=== PATIENT | male | born 1985 | race Two or more races ===

== ENCOUNTER 2020-03-24 16:45 | Emergency (ER) | payer BC | END 2020-03-24 16:59 | disposition left against medical advice (07) | LOC: EMS 16:45 | DX: Z53.21 Procedure and treatment not carried out due to patient leaving prior to being seen by health care provider (principal) ==

== ENCOUNTER 2021-05-02 13:14 | Inpatient (IN) | payer BC, MEDICAID, OTHER ==
[~2021-05-02] VITALS: Ht 162.6 cm; Wt 69.4 kg
[2021-05-02] MEDS ORDERED: LORazepam 2 MG/ML VIAL IM ONE (17:45)
[2021-05-02] MEDS ORDERED: DiphenhydrAMINE HCL 25 MG/10 ML SOLUTION UDCUP PO ONE (17:45)
[2021-05-02] MEDS ORDERED: HALOPERIDOL LACTATE 5 MG/ML VIAL IM ONE (17:45)
[2021-05-02] MEDS ORDERED: DiphenhydrAMINE HCL 50 MG/ML VIAL IM ONE (17:45)
[2021-05-02 18:49] LABS: ANION GAP 9 mmol/L (8-16); CALCIUM, TOTAL 8.9 mg/dL (8.8-10.5); CARBON DIOXIDE 25 mmol/L (22-29); CHLORIDE 106 mmol/L (98-107); CREATININE 0.83 mg/dL (0.60-1.30); GLOMERULAR FILTR. RATE CALC > 60 mL/min (>60); GLUCOSE,RANDOM 80 mg/dL (70-110); POTASSIUM 3.4 mmol/L (3.5-5.1); SODIUM SERUM 140 mmol/L (136-145); UREA NITROGEN, BLOOD 20 mg/dL (7-18)
[2021-05-02 18:55] LABS: ALANINE AMINOTRANSFERASE 22 U/L (12-78); ALBUMIN 3.9 g/dL (3.4-5.0); ALKALINE PHOSPHATASE 60 U/L (46-116); ASPARTATE AMINOTRANSFERASE 22 U/L (15-37); BILIRUBIN,TOTAL 0.3 mg/dL (0.1-1.0); TOTAL PROTEIN, SERUM 7.5 g/dL (6.4-8.2)
[2021-05-02 19:20] LABS: BASOPHILS % (AUTO) 0.6 % (0.0-2.0); EOSINOPHILS % (AUTO) 0.6 % (1.0-6.0); HEMATOCRIT 41.1 % (41-53); HEMOGLOBIN 13.9 g/dL (13.5-17.5); LYMPHOCYTES # (AUTO) 2.1 K/uL (1.0-4.8); LYMPHOCYTES % (AUTO) 24.2 % (22.0-44.0); MEAN CORPUSCULAR HEMOGLOBIN 29.3 pg (26.0-34.0); MEAN CORPUSCULAR HGB CONC 33.9 G/dL (31.0-37.0); MEAN CORPUSCULAR VOLUME 87 fL (80-100); MONOCYTES # (AUTO) 0.6 K/uL (0.1-1.0); MONOCYTES % (AUTO) 6.9 % (2.0-9.0); NEUTROPHILS % (AUTO) 67.7 % (40.0-70.0); PLATELET COUNT (AUTO) 298 K/uL (150-450); RED BLOOD CELL COUNT(AUTO) 4.75 MIL/uL (4.50-5.90)
[2021-05-02] MEDS ORDERED: POTASSIUM CHLORIDE 10% 40 MEQ/30 ML LIQUID UDCUP PO ONE (22:15)
[2021-05-02 22:28] LABS: COVID AG,FIA SOURCE NASOPHARYNGEAL
[2021-05-03] MEDS ORDERED: LORazepam 2 MG TABLET PO PRN (02:00)
[2021-05-03] MEDS ORDERED: ZOLPIDEM TARTRATE 10 MG TABLET PO PRN (02:00)
[2021-05-03] MEDS ORDERED: ALBUTEROL SULFATE HFA 90 MCG/PUFF 8 GM INHALER IH PRN (12:30)
[2021-05-03] MEDS ORDERED: GuaiFENesin/D-METHORPHAN [SUGAR-FREE] 200-20MG/10 ML SYRUP UDCUP PO PRN (12:30)
[2021-05-03] MEDS ORDERED: MAGNESIUM HYDROXIDE SUSPENSION 30 ML UDCUP PO PRN (12:30)
[2021-05-03] MEDS ORDERED: CloNIDine HCL 0.1 MG TABLET PO PRN (12:30)
[2021-05-03] MEDS ORDERED: PETROLATUM,WHITE 28 GM JELLY TP PRN (12:30)
[2021-05-03] MEDS ORDERED: IBUPROFEN 400 MG TABLET PO PRN (12:30)
[2021-05-03] MEDS ORDERED: ONDANSETRON HCL 4 MG TABLET PO PRN (12:30)
[2021-05-03] MEDS ORDERED: ACETAMINOPHEN 325 MG TABLET PO PRN (12:30)
[2021-05-03] MEDS ORDERED: MAG HYDROX/AL HYDROX/SIMETH ES 30 ML SUSPENSION UDCUP PO PRN (12:30)
[2021-05-03] MEDS ORDERED: LOPERAMIDE HCL 2 MG CAPSULE PO PRN (12:30)
[2021-05-03] MEDS ORDERED: DOCUSATE SODIUM 100 MG CAPSULE PO PRN (12:30)
[2021-05-03] MEDS ORDERED: NICOTINE 14 MG/24 HOUR PATCH TD PRN (12:30)
[2021-05-04] MEDS: HALOPERIDOL 5 MG TABLET PO PRN (08:19)
[2021-05-04] MEDS: OLANZapine 10 MG TABLET PO SCH ×2 (11:15→21:00)
[2021-05-04] MEDS ORDERED: LORazepam 2 MG TABLET PO PRN (14:00)
[2021-05-05 00:14] VITALS: BP 120/69
[2021-05-05] MEDS: LORazepam 1 MG TABLET PO PRN ×3 (08:45→12:08)
[2021-05-05] MEDS: HALOPERIDOL 5 MG TABLET PO PRN ×2 (08:45→12:08)
[2021-05-05] MEDS: OLANZapine 10 MG TABLET PO SCH ×3 (08:45→20:54)
[2021-05-06] MEDS: OLANZapine 10 MG TABLET PO SCH ×3 (08:04→20:42)
[2021-05-06] MEDS: LORazepam 1 MG TABLET PO PRN (23:33)
[2021-05-07 08:30] VITALS: BP 121/79
[2021-05-07] MEDS: OLANZapine 10 MG TABLET PO SCH ×2 (08:32→21:00)
[2021-05-08] MEDS: OLANZapine 10 MG TABLET PO SCH ×2 (09:00→20:30)
[2021-05-09] MEDS: OLANZapine 10 MG TABLET PO SCH ×2 (08:48→21:00)
[2021-05-09 16:22] VITALS: BP 109/74
[2021-05-10 08:24] VITALS: BP 130/84
[2021-05-10] MEDS: OLANZapine 10 MG TABLET PO SCH ×2 (08:31→08:38)
[2021-05-10] MEDS ORDERED: OLAN10 PO (09:16)
== END 2021-05-10 09:45 | disposition home or self-care (01) | DRG 750 ==
LOC: EMS 13:22 → B3A 05-03 13:35
PROVIDERS: ADMIT Psychiatry & Neurology Child & Adolescent Psychiatry; ATTEND Psychiatry & Neurology Child & Adolescent Psychiatry
DX: F20.0 Paranoid schizophrenia (principal); F31.9 Bipolar disorder, unspecified; Z20.822 Contact with and (suspected) exposure to COVID-19; Z91.14 Patient's other noncompliance with medication regimen
CPT/HCPCS: 80053; 85025; 99285; G0480; J1200; J1630; J2060

== ENCOUNTER 2023-05-25 11:46 | Inpatient (IN) | payer MEDICAID ==
[~2023-05-25] VITALS: Ht 162.6 cm; Wt 89.8 kg
[2023-05-25 12:56] LABS: GLUCOMETER DEV NAME(LOC) POC.BV; POC SARS-COV2 AG, FIA NEGATIVE (NEGATIVE)
[2023-05-25 14:00] VITALS: BP 111/70; PULSE 90; RESP 18; TEMP 97.5; O2SAT 100
[2023-05-25] MEDS: INFLUENZA VIRUS VACCINE QVS 2023-24 (6MO+)/PF 60 MCG/0.5 ML SYRINGE IM. ONE (14:45)
[2023-05-25 16:42] VITALS: BP 129/74; PULSE 86; RESP 18; O2SAT 98
[2023-05-25] MEDS: HALOPERIDOL 5 MG TABLET PO PRN (16:44)
[2023-05-25] MEDS: LORazepam 2 MG TABLET PO PRN (16:44)
[2023-05-25 20:00] VITALS: BP 113/69; PULSE 71; RESP 18; TEMP 97.4; O2SAT 98
[2023-05-26 08:24] VITALS: BP 121/82; PULSE 87; RESP 18; TEMP 98; O2SAT 98
[2023-05-26 10:27] LABS: BASOPHILS % (AUTO) 0.8 % (0.0-2.0); EOSINOPHILS % (AUTO) 1.7 % (1.0-6.0); HEMATOCRIT 43.9 % (41-53); HEMOGLOBIN 14.5 g/dL (13.5-17.5); LYMPHOCYTES # (AUTO) 1.9 K/uL (1.0-4.8); LYMPHOCYTES % (AUTO) 21.2 % (22.0-44.0); MEAN CORPUSCULAR HEMOGLOBIN 29.2 pg (26.0-34.0); MEAN CORPUSCULAR HGB CONC 33.1 G/dL (31.0-37.0); MEAN CORPUSCULAR VOLUME 88 fL (80-100); MONOCYTES # (AUTO) 0.6 K/uL (0.1-1.0); MONOCYTES % (AUTO) 7.2 % (2.0-9.0); NEUTROPHILS # (AUTO) 6.1 K/uL (1.8-7.7); NEUTROPHILS % (AUTO) 69.1 % (40.0-70.0); PLATELET COUNT (AUTO) 396 K/uL (150-450); RED BLOOD CELL COUNT(AUTO) 4.98 MIL/uL (4.50-5.90); WHITE BLOOD COUNT (AUTO) 8.9 K/uL (4.5-11.0)
[2023-05-26 10:36] LABS: HEMOGLOBIN A1C 5.7 % (3.8-5.6)
[2023-05-26 10:39] LABS: APPEARANCE,URINE TURBID (CLEAR); BILIRUBIN,URINE NEGATIVE (NEGATIVE); COLOR,URINE YELLOW (YELLOW); GLUCOSE, URINE (UA) NEGATIVE (NEGATIVE); KETONES,URINE NEGATIVE (NEGATIVE); LEUKOCYTE ESTERASE ,URINE NEGATIVE (NEGATIVE); NITRATE,URINE NEGATIVE (NEGATIVE); OCCULT BLOOD,URINE NEGATIVE (NEGATIVE); PROTEIN,URINE NEGATIVE (NEGATIVE); SPECIFIC GRAVITIY, URINE 1.018 (1.003-1.030); UROBILINOGEN,URINE <=1.0 mg/dL (<=1.0)
[2023-05-26 10:45] LABS: ALCOHOL, URINE DRUG SCREEN NEGATIVE (NEGATIVE); AMPHET/METH SCREEN,URINE NEGATIVE (NEGATIVE); BARBITURATE SCREEN, URINE NEGATIVE (NEGATIVE); BENZODIAZEPINES SCREEN,URINE NEGATIVE (NEGATIVE); CANNABINOID SCREEN,URINE NEGATIVE (NEGATIVE); COCAINE SCREEN,URINE NEGATIVE (NEGATIVE); METHADONE SCREEN, URINE NEGATIVE (NEGATIVE); OPIATE SCREEN,URINE NEGATIVE (NEGATIVE); PHENCYCLIDINE SCREEN,URINE NEGATIVE (NEGATIVE)
[2023-05-26 10:50] LABS: ALANINE AMINOTRANSFERASE 36 U/L (12-78); ALBUMIN 3.6 g/dL (3.4-5.0); ALKALINE PHOSPHATASE 84 U/L (46-116); ANION GAP 8 mmol/L (8-16); ASPARTATE AMINOTRANSFERASE 17 U/L (15-37); BILIRUBIN,TOTAL 0.2 mg/dL (0.1-1.0); CALCIUM, TOTAL 9.5 mg/dL (8.8-10.5); CARBON DIOXIDE 29 mmol/L (22-29); CHLORIDE 100 mmol/L (98-107); CHOL/HDL RATIO 5.5 (4.2-7.3); CHOLESTEROL 246 mg/dL (131-200); CREATININE 0.71 mg/dL (0.60-1.30); FREE T4 (FREE THYROXINE) 1.07 ng/dL (0.76-1.46); GLOMERULAR FILTR. RATE CALC > 60 mL/min (>60); GLUCOSE,RANDOM 76 mg/dL (70-110); HDL CHOLESTEROL 45 mg/dL (40-60); LDL CHOL (CALC.) 126 mg/dL (0-130); POTASSIUM 4.1 mmol/L (3.5-5.1); SODIUM SERUM 137 mmol/L (136-145); TOTAL PROTEIN, SERUM 7.2 g/dL (6.4-8.2); TRIGLYCERIDES 374 mg/dL (15-150); UREA NITROGEN, BLOOD 17 mg/dL (7-18)
[2023-05-26] MEDS ORDERED: DOCUSATE SODIUM 100 MG CAPSULE PO PRN (13:30)
[2023-05-26] MEDS ORDERED: BENZOCAINE/MENTHOL LOZENGE PO PRN (13:30)
[2023-05-26] MEDS ORDERED: ALBUTEROL SULFATE HFA 90 MCG/PUFF 8 GM INHALER IH PRN (13:30)
[2023-05-26] MEDS ORDERED: ONDANSETRON HCL 4 MG TABLET PO PRN (13:30)
[2023-05-26] MEDS ORDERED: IBUPROFEN 600 MG TABLET PO PRN (13:30)
[2023-05-26] MEDS ORDERED: MAGNESIUM HYDROXIDE SUSPENSION 30 ML UDCUP PO PRN (13:30)
[2023-05-26] MEDS ORDERED: CloNIDine HCL 0.1 MG TABLET PO PRN (13:30)
[2023-05-26] MEDS ORDERED: OMEPRAZOLE 20 MG CAPSULE PO PRN (13:30)
[2023-05-26] MEDS ORDERED: BACITRACIN 28 GM OINTMENT TP PRN (13:30)
[2023-05-26] MEDS ORDERED: LOPERAMIDE HCL 2 MG CAPSULE PO PRN (13:30)
[2023-05-26] MEDS: RisperiDONE 3 MG TABLET PO SCH (16:22)
[2023-05-26] MEDS: DIVALPROEX SODIUM 500 MG DR TABLET PO SCH (16:22)
[2023-05-26] MEDS: BENZTROPINE MESYLATE 2 MG TABLET PO SCH (20:27)
[2023-05-26 21:03] VITALS: BP 124/78; PULSE 91; RESP 18; TEMP 97.7; O2SAT 98
[2023-05-27 06:32] VITALS: BP 125/75; PULSE 92; RESP 18; TEMP 97.5; O2SAT 98
[2023-05-27] MEDS: ACETAMINOPHEN 325 MG TABLET PO PRN (06:35)
[2023-05-27 08:28] VITALS: BP 132/98; PULSE 97; RESP 18; TEMP 98.2; O2SAT 98
[2023-05-27 20:56] VITALS: BP 122/75; PULSE 94; RESP 17; TEMP 97.8; O2SAT 99
[2023-05-27] MEDS: ZOLPIDEM TARTRATE 10 MG TABLET PO PRN (21:16)
[2023-05-28 08:41] VITALS: BP 135/81; PULSE 100; RESP 18; TEMP 97.6; O2SAT 97
[2023-05-28 15:40] VITALS: BP 132/79; RESP 18; O2SAT 97
[2023-05-28 20:19] VITALS: BP 132/79; PULSE 100; RESP 17; TEMP 97.5; O2SAT 99
[2023-05-29 08:09] VITALS: BP 147/75; PULSE 112; RESP 17; TEMP 97.5; O2SAT 100
[2023-05-29 20:24] VITALS: BP 125/76; PULSE 82; RESP 18; TEMP 98; O2SAT 99
[2023-05-30 08:28] VITALS: BP 127/71; PULSE 98; RESP 18; TEMP 97.8; O2SAT 100
[2023-05-30 20:11] VITALS: BP 128/55; PULSE 110; RESP 19; TEMP 97.8; O2SAT 100
[2023-05-31 08:00] VITALS: BP 128/77; PULSE 120; RESP 16; TEMP 97.9; O2SAT 100
[2023-05-31 20:11] VITALS: BP 120/78; PULSE 11; RESP 19; TEMP 98.4; O2SAT 98
[2023-06-01 08:24] VITALS: BP 122/42; PULSE 95; RESP 16; TEMP 98.5; O2SAT 100
[2023-06-01] MEDS: OMEGA-3/DHA/EPA/FISH OIL 1,000 MG CAPSULE PO SCH (08:31)
[2023-06-01 20:41] VITALS: BP 126/73; PULSE 109; RESP 18; TEMP 97.9; O2SAT 98
[2023-06-02 08:24] VITALS: BP 105/64; PULSE 104; RESP 17; TEMP 97.3; O2SAT 99
[2023-06-02 20:38] VITALS: BP 108/74; PULSE 100; RESP 18; TEMP 97.4; O2SAT 97
[2023-06-03 08:21] VITALS: BP 116/91; PULSE 98; RESP 18; TEMP 97.9; O2SAT 99
[2023-06-03 21:28] VITALS: BP 107/72; PULSE 105; RESP 18; TEMP 96.9; O2SAT 98
[2023-06-04 08:31] VITALS: BP 116/85; PULSE 97; RESP 17; TEMP 97.8; O2SAT 97
[2023-06-04 20:12] VITALS: BP 113/76; PULSE 79; RESP 18; TEMP 97.8; O2SAT 99
[2023-06-05 08:34] VITALS: BP 120/79; PULSE 98; RESP 19; TEMP 97.5; O2SAT 98
[2023-06-05 20:09] VITALS: BP 106/70; PULSE 104; RESP 18; TEMP 97.8; O2SAT 95
[2023-06-05] MEDS: MAG HYDROX/ALUMINUM HYD/SIMETH ES 30 ML SUSPENSION UDCUP PO PRN (20:41)
[2023-06-06 08:27] VITALS: BP 123/84; PULSE 91; RESP 17; TEMP 97.6; O2SAT 98
[2023-06-06 20:43] VITALS: BP 118/75; PULSE 94; RESP 18; TEMP 97.8; O2SAT 98
[2023-06-07 08:18] VITALS: BP 118/73; PULSE 98; RESP 18; TEMP 97.5; O2SAT 97
[2023-06-07 20:45] VITALS: BP 116/76; PULSE 84; RESP 18; TEMP 97.4; O2SAT 98
[2023-06-08 08:09] VITALS: BP 123/75; PULSE 76; RESP 17; TEMP 97.6; O2SAT 99
[2023-06-08] MEDS: PETROLATUM,WHITE 28 GM JELLY TP PRN (19:20)
[2023-06-08 21:00] VITALS: BP 138/72; PULSE 66; RESP 18; TEMP 97.3; O2SAT 97
[2023-06-09 08:12] VITALS: BP 119/74; PULSE 87; RESP 17; TEMP 97.9; O2SAT 98
[2023-06-10 00:08] VITALS: BP 152/88; PULSE 82; RESP 16; TEMP 96.7; O2SAT 98
[2023-06-10 08:35] VITALS: BP 131/82; PULSE 98; RESP 18; TEMP 97.3; O2SAT 100
[2023-06-10 20:21] VITALS: BP 148/89; PULSE 92; RESP 19; TEMP 97.9; O2SAT 94
[2023-06-11 08:25] VITALS: BP 142/75; PULSE 86; RESP 16; TEMP 97.3; O2SAT 99
[2023-06-11 20:24] VITALS: BP 112/72; PULSE 76; RESP 18; TEMP 97.8; O2SAT 98
[2023-06-12 08:21] VITALS: BP 116/58; PULSE 98; RESP 18; TEMP 97.8; O2SAT 98
[2023-06-12 23:35] VITALS: RESP 18
[2023-06-13 09:20] VITALS: BP 117/71; PULSE 86; RESP 18; TEMP 97.6; O2SAT 100
[2023-06-13 20:37] VITALS: BP 143/84; PULSE 85; RESP 16; TEMP 97.6; O2SAT 95
[2023-06-14 08:21] VITALS: BP 124/71; PULSE 82; RESP 18; TEMP 98; O2SAT 100
[2023-06-14 22:53] VITALS: BP 121/73; PULSE 88; RESP 18; TEMP 97.7; O2SAT 98
[2023-06-15 09:27] VITALS: BP 120/75; PULSE 90; RESP 16; TEMP 98; O2SAT 100
[2023-06-15 20:41] VITALS: BP 103/63; PULSE 68; RESP 17; TEMP 97.8; O2SAT 99
[2023-06-16 08:15] VITALS: BP 134/91; PULSE 83; RESP 18; TEMP 98; O2SAT 100
[2023-06-16] MEDS: RisperiDONE 4 MG TABLET PO SCH (16:53)
[2023-06-16 20:33] VITALS: BP 110/75; PULSE 70; RESP 17; TEMP 97.7; O2SAT 98
[2023-06-17 08:35] VITALS: BP 137/77; PULSE 95; RESP 18; TEMP 97.6; O2SAT 97
[2023-06-17 20:42] VITALS: BP 112/73; PULSE 70; RESP 16; TEMP 97.7; O2SAT 99
[2023-06-18 08:42] VITALS: BP 112/71; PULSE 71; RESP 16; TEMP 97.7; O2SAT 98
[2023-06-19 11:03] VITALS: BP 106/76; PULSE 105; RESP 18; TEMP 97.6; O2SAT 100
[2023-06-19 22:37] VITALS: BP 100/69; PULSE 120; RESP 18; TEMP 97.5; O2SAT 100
[2023-06-20 09:39] VITALS: BP 116/70; PULSE 96; RESP 18; TEMP 97.6; O2SAT 98
[2023-06-20 20:56] VITALS: BP 116/76; PULSE 78; RESP 18; TEMP 97.4; O2SAT 99
[2023-06-21 09:21] VITALS: BP 130/78; PULSE 90; RESP 18; TEMP 98.3; O2SAT 100
[2023-06-21] MEDS ORDERED: RisperiDONE MICROSPHERES 50 MG/2 ML SYRINGE IM ONE (15:30)
[2023-06-21 20:28] VITALS: BP 123/84; PULSE 89; RESP 20; TEMP 97.9; O2SAT 99
[2023-06-22 10:40] VITALS: BP 115/73; PULSE 106; RESP 17; TEMP 97.6; O2SAT 98
[2023-06-22 20:14] VITALS: BP 115/97; PULSE 81; RESP 16; TEMP 97.9; O2SAT 96
[2023-06-23 08:52] VITALS: BP 109/64; PULSE 62; RESP 18; TEMP 97.8; O2SAT 97
[2023-06-23 21:59] VITALS: BP 115/70; PULSE 86; RESP 18; TEMP 97.3; O2SAT 97
[2023-06-24 08:00] VITALS: BP 124/82; PULSE 84; RESP 18; TEMP 98.1; O2SAT 100
[2023-06-24] MEDS: RisperiDONE MICROSPHERES 50 MG/2 ML SYRINGE IM SCH (16:57)
[2023-06-24 20:12] VITALS: BP 144/76; PULSE 92; RESP 20; TEMP 97.3; O2SAT 95
[2023-06-25 09:14] VITALS: BP 150/77; PULSE 90; RESP 16; TEMP 98.5; O2SAT 99
[2023-06-25] MEDS: RisperiDONE 3 MG TABLET PO SCH (09:31)
[2023-06-25 21:12] VITALS: BP 112/75; PULSE 90; RESP 18; TEMP 98.2
[2023-06-26 08:30] VITALS: BP 117/77; PULSE 62; RESP 18; TEMP 97.7; O2SAT 98
[2023-06-26] MEDS ORDERED: RISP3TAB77 PO (10:18)
[2023-06-26] MEDS ORDERED: BENZ2TAB71 PO (10:18)
[2023-06-26] MEDS ORDERED: DIVA500T53 PO (10:19)
[2023-06-26] MEDS ORDERED: RISPC50 IM (10:20)
[2023-07-05] MEDS ORDERED: RisperiDONE MICROSPHERES 50 MG/2 ML SYRINGE IM SCH (09:00)
== END 2023-06-26 15:15 | disposition home or self-care (01) | DRG 750 ==
LOC: B2S 12:29
PROVIDERS: ADMIT Psychiatry & Neurology Psychiatry; ATTEND Psychiatry & Neurology Psychiatry
DX: F20.9 Schizophrenia, unspecified (principal); R45.851 Suicidal ideations; E66.9 Obesity, unspecified; F31.9 Bipolar disorder, unspecified; F41.9 Anxiety disorder, unspecified; G47.00 Insomnia, unspecified; K59.00 Constipation, unspecified; K21.9 Gastro-esophageal reflux disease without esophagitis; Z68.34 Body mass index [BMI] 34.0-34.9, adult; Z28.21 Immunization not carried out because of patient refusal; Z20.822 Contact with and (suspected) exposure to COVID-19
CPT/HCPCS: 80053; 80061; 80164; 80307; 81003; 83036; 84439; 84443; 85025; 87081; J2794

== ENCOUNTER 2024-02-01 09:42 | Inpatient (IN) | payer MEDICAID, OTHER ==
[~2024-02-01] VITALS: Ht 162.6 cm; Wt 88.7 kg
[~2024-02-01 09:42] MED LIST: BENZ2TAB84 PO; DIVA-153 PO; RISP3TAB77 PO; RISPC50 IM
[2024-02-01 10:06] LABS: BASOPHILS % (AUTO) 0.5 % (0.0-2.0); EOSINOPHILS % (AUTO) 0.7 % (1.0-6.0); HEMATOCRIT 42.4 % (41-53); HEMOGLOBIN 14.1 g/dL (13.5-17.5); LYMPHOCYTES # (AUTO) 2.3 K/uL (1.0-4.8); LYMPHOCYTES % (AUTO) 16.8 % (22.0-44.0); MEAN CORPUSCULAR HEMOGLOBIN 27.8 pg (26.0-34.0); MEAN CORPUSCULAR HGB CONC 33.3 G/dL (31.0-37.0); MEAN CORPUSCULAR VOLUME 84 fL (80-100); MONOCYTES % (AUTO) 7.5 % (2.0-9.0); NEUTROPHILS # (AUTO) 10.1 K/uL (1.8-7.7); NEUTROPHILS % (AUTO) 74.5 % (40.0-70.0); PLATELET COUNT (AUTO) 423 K/uL (150-450); RED BLOOD CELL COUNT(AUTO) 5.06 MIL/uL (4.50-5.90); RED CELL DISTRIBUTION WIDTH 14.1 % (11.5-14.5); WHITE BLOOD COUNT (AUTO) 13.5 K/uL (4.5-11.0)
[2024-02-01] MEDS: LORazepam 2 MG/ML VIAL IM ONE (10:07)
[2024-02-01] MEDS: DiphenhydrAMINE HCL 50 MG/ML VIAL IM ONE (10:07)
[2024-02-01] MEDS: HALOPERIDOL LACTATE 5 MG/ML VIAL IM ONE (10:07)
[2024-02-01 10:15] LABS: ANION GAP 15 mmol/L (8-16); CALCIUM, TOTAL 9.3 mg/dL (8.8-10.5); CARBON DIOXIDE 21 mmol/L (22-29); CHLORIDE 103 mmol/L (98-107); CREATININE 0.85 mg/dL (0.60-1.30); GLOMERULAR FILTR. RATE CALC > 60 mL/min (>60); GLUCOSE,RANDOM 110 mg/dL (70-110); POTASSIUM 3.7 mmol/L (3.5-5.1); SODIUM SERUM 139 mmol/L (136-145); UREA NITROGEN, BLOOD 16 mg/dL (7-18)
[2024-02-01 10:30] LABS: ALCOHOL, BLOOD (SERUM) < 3 mg/dL (0-10)
[2024-02-01 10:55] LABS: COVID AG,FIA SOURCE NASAL SWAB
[2024-02-01 11:22] LABS: SARS-COV2 (COVID) ANTIGEN,FIA Negative (Negative)
[2024-02-02 01:53] VITALS: O2SAT 96
[2024-02-02 03:30] VITALS: BP 135/92; PULSE 78; RESP 18; TEMP 96.5; O2SAT 96
[2024-02-02 08:00] VITALS: BP 121/75; PULSE 103; RESP 18; TEMP 97.7; O2SAT 97
[2024-02-02] MEDS: BENZTROPINE MESYLATE 2 MG TABLET PO SCH (11:30)
[2024-02-02] MEDS: RisperiDONE 3 MG TABLET PO SCH (11:30)
[2024-02-02] MEDS ORDERED: CloNIDine HCL 0.1 MG TABLET PO PRN (14:00)
[2024-02-02] MEDS ORDERED: NICOTINE 14 MG/24 HOUR PATCH TD PRN (14:00)
[2024-02-02] MEDS ORDERED: ONDANSETRON 4 MG TABLET PO PRN (14:00)
[2024-02-02] MEDS ORDERED: GuaiFENesin/D-METHORPHAN [SUGAR-FREE] 200-20MG/10 ML SYRUP UDCUP PO PRN (14:00)
[2024-02-02] MEDS ORDERED: ALBUTEROL SULFATE HFA 90 MCG/PUFF 8 GM INHALER IH PRN (14:00)
[2024-02-02] MEDS ORDERED: MAGNESIUM HYDROXIDE SUSPENSION 30 ML UDCUP PO PRN (14:00)
[2024-02-02] MEDS ORDERED: PETROLATUM,WHITE 28 GM JELLY TP PRN (14:00)
[2024-02-02] MEDS: DIVALPROEX SODIUM 500 MG DR TABLET PO SCH (17:00)
[2024-02-02] MEDS: SULFAMETHOX/TRIMETH DS 800-160 MG/TABLET PO SCH (17:20)
[2024-02-02 20:30] VITALS: BP 131/85; PULSE 81; RESP 18; TEMP 97.8; O2SAT 98
[2024-02-02] MEDS: IBUPROFEN 400 MG TABLET PO PRN (20:30)
[2024-02-02] MEDS: ZOLPIDEM TARTRATE 10 MG TABLET PO PRN (20:30)
[2024-02-02 21:30] VITALS: BP 123/86; PULSE 84; PULSE 86; RESP 18; TEMP 97.6; TEMP 97.8; O2SAT 97
[2024-02-03] MEDS: MAG HYDROX/ALUMINUM HYD/SIMETH ES 30 ML SUSPENSION UDCUP PO PRN (06:22)
[2024-02-03 09:07] VITALS: BP 146/82; PULSE 100; RESP 18; TEMP 97; O2SAT 99
[2024-02-03 09:40] LABS: CHOL/HDL RATIO 4.6 (4.2-7.3)
[2024-02-03 10:08] LABS: HEMOGLOBIN A1C 5.9 % (3.8-5.6)
[2024-02-03 11:14] LABS: THYROID STIMULATING HORMONE 1.53 uIU/mL (0.36-3.74)
[2024-02-03 20:17] VITALS: BP 132/94; PULSE 93; RESP 18; TEMP 97; O2SAT 96
[2024-02-04 00:04] VITALS: RESP 18
[2024-02-04] MEDS: ACETAMINOPHEN 325 MG TABLET PO PRN (00:06)
[2024-02-04] MEDS ORDERED: SIMETHICONE 80 MG CHEWABLE TABLET CHEW PRN (09:00)
[2024-02-04] MEDS: LORazepam 2 MG TABLET PO PRN (09:47)
[2024-02-04 10:15] VITALS: RESP 18
[2024-02-04] MEDS ORDERED: OMEPRAZOLE 20 MG CAPSULE PO PRN (10:15)
[2024-02-04 10:17] VITALS: BP 128/81; PULSE 96; RESP 18; TEMP 97.3; O2SAT 98
[2024-02-04 10:23] VITALS: BP 128/81; PULSE 96; RESP 18; TEMP 97.3; O2SAT 98
[2024-02-04 11:15] VITALS: RESP 17
[2024-02-04] MEDS: LOPERAMIDE HCL 2 MG CAPSULE PO PRN (15:07)
[2024-02-04 20:08] VITALS: BP 130/85; PULSE 88; RESP 18; TEMP 97.3; O2SAT 97
[2024-02-05] MEDS: HALOPERIDOL 5 MG TABLET PO PRN (08:36)
[2024-02-05 08:42] VITALS: BP 119/79; PULSE 100; RESP 17; TEMP 97.5; O2SAT 98
[2024-02-05 21:30] VITALS: BP 136/80; PULSE 92; RESP 18; O2SAT 97
[2024-02-06 08:55] VITALS: BP 130/84; PULSE 138; RESP 17; TEMP 97.6; O2SAT 97
[2024-02-06 09:16] LABS: APPEARANCE,URINE CLEAR (CLEAR); BILIRUBIN,URINE NEGATIVE (NEGATIVE); COLOR,URINE LIGHT YELLOW (YELLOW); GLUCOSE, URINE (UA) NEGATIVE (NEGATIVE); KETONES,URINE NEGATIVE (NEGATIVE); LEUKOCYTE ESTERASE ,URINE NEGATIVE (NEGATIVE); NITRATE,URINE NEGATIVE (NEGATIVE); OCCULT BLOOD,URINE NEGATIVE (NEGATIVE); PH,URINE 6.5 (5.0-8.0); PH,URINE DRUG SCREEN 6.5 (5.0-8.0); PROTEIN,URINE NEGATIVE (NEGATIVE); SPECIFIC GRAVITIY, URINE 1.018 (1.003-1.030); UROBILINOGEN,URINE <=1.0 mg/dL (<=1.0)
[2024-02-06 09:19] LABS: ALCOHOL, URINE DRUG SCREEN NEGATIVE (NEGATIVE); AMPHET/METH SCREEN,URINE NEGATIVE (NEGATIVE); BARBITURATE SCREEN, URINE NEGATIVE (NEGATIVE); BENZODIAZEPINES SCREEN,URINE NEGATIVE (NEGATIVE); CANNABINOID SCREEN,URINE NEGATIVE (NEGATIVE); COCAINE SCREEN,URINE NEGATIVE (NEGATIVE); METHADONE SCREEN, URINE NEGATIVE (NEGATIVE); OPIATE SCREEN,URINE NEGATIVE (NEGATIVE); PHENCYCLIDINE SCREEN,URINE NEGATIVE (NEGATIVE)
[2024-02-06 13:53] VITALS: BP 130/84; PULSE 94; RESP 17; TEMP 97.7; O2SAT 97
[2024-02-06 20:19] VITALS: BP 111/77; PULSE 100; RESP 18; TEMP 97.5; O2SAT 96
[2024-02-07 08:11] LABS: BASOPHILS % (AUTO) 0.3 % (0.0-2.0); EOSINOPHILS % (AUTO) 2.1 % (1.0-6.0); HEMATOCRIT 41.6 % (41-53); HEMOGLOBIN 13.9 g/dL (13.5-17.5); LYMPHOCYTES # (AUTO) 2.2 K/uL (1.0-4.8); LYMPHOCYTES % (AUTO) 26.3 % (22.0-44.0); MEAN CORPUSCULAR HEMOGLOBIN 28.1 pg (26.0-34.0); MEAN CORPUSCULAR HGB CONC 33.4 G/dL (31.0-37.0); MEAN CORPUSCULAR VOLUME 84 fL (80-100); MONOCYTES # (AUTO) 0.6 K/uL (0.1-1.0); MONOCYTES % (AUTO) 7.3 % (2.0-9.0); NEUTROPHILS # (AUTO) 5.4 K/uL (1.8-7.7); PLATELET COUNT (AUTO) 371 K/uL (150-450); RED BLOOD CELL COUNT(AUTO) 4.95 MIL/uL (4.50-5.90); RED CELL DISTRIBUTION WIDTH 14.3 % (11.5-14.5); WHITE BLOOD COUNT (AUTO) 8.5 K/uL (4.5-11.0)
[2024-02-07 09:05] VITALS: BP 126/76; PULSE 104; RESP 18; TEMP 97.2; O2SAT 100
[2024-02-07 22:00] VITALS: BP 124/74; PULSE 102; RESP 19; TEMP 97.4; O2SAT 100
[2024-02-08 08:35] VITALS: BP 112/83; PULSE 76; RESP 17; TEMP 98; O2SAT 99
[2024-02-08 20:55] VITALS: BP 110/68; PULSE 72; RESP 17; TEMP 97.8; O2SAT 99
[2024-02-09 09:00] VITALS: BP 100/67; PULSE 119; RESP 18; TEMP 96.8; O2SAT 97
[2024-02-09 20:25] VITALS: BP 123/82; PULSE 113; RESP 18; TEMP 97; O2SAT 97
[2024-02-10 08:53] VITALS: BP 112/72; PULSE 105; RESP 17; TEMP 97.7; O2SAT 99
[2024-02-10 21:00] VITALS: BP 121/74; PULSE 93; RESP 18; TEMP 98
[2024-02-11 08:31] VITALS: BP 134/75; PULSE 103; RESP 17; TEMP 97.7; O2SAT 97
[2024-02-11 20:23] VITALS: BP 126/74; PULSE 98; RESP 18; TEMP 97.6; O2SAT 97
[2024-02-11] MEDS: LURASIDONE HCL 60 MG TABLET PO SCH (20:34)
[2024-02-12 09:00] VITALS: BP 100/61; PULSE 95; RESP 17; TEMP 97.3; O2SAT 97
[2024-02-12 21:11] VITALS: RESP 18
[2024-02-13 12:11] VITALS: BP 146/89; PULSE 100; RESP 17; TEMP 97.5; O2SAT 98
[2024-02-13 20:23] VITALS: BP 135/75; PULSE 100; RESP 19; TEMP 97; O2SAT 98
[2024-02-14 08:45] VITALS: BP 130/79; PULSE 90; RESP 18; TEMP 97.4; O2SAT 98
[2024-02-14] MEDS: DOCUSATE SODIUM 100 MG CAPSULE PO PRN (14:24)
[2024-02-14 20:35] VITALS: BP 159/102; PULSE 93; RESP 16; TEMP 97.7; O2SAT 98
[2024-02-15] MEDS: ZOLPIDEM TARTRATE 10 MG TABLET PO PRN (01:05)
[2024-02-15 09:07] VITALS: BP 129/81; PULSE 100; RESP 17; TEMP 97.8; O2SAT 100
[2024-02-15 20:40] VITALS: BP 127/78; PULSE 95; RESP 17; TEMP 98; O2SAT 100
[2024-02-16 08:13] VITALS: BP 129/73; PULSE 111; RESP 17; TEMP 97.4; O2SAT 98
[2024-02-16 20:22] VITALS: BP 124/80; PULSE 106; RESP 18; TEMP 98; O2SAT 98
[2024-02-17 13:39] VITALS: BP 117/78; PULSE 116; RESP 17; TEMP 97.9; O2SAT 99
[2024-02-17 21:03] VITALS: BP 116/81; PULSE 79; RESP 18; TEMP 97.6; O2SAT 98
[2024-02-18 08:14] VITALS: BP 126/70; PULSE 82; RESP 18; TEMP 96.4; O2SAT 98
[2024-02-18] MEDS: HydrOXYzine PAMOATE 50 MG CAPSULE PO PRN (16:55)
[2024-02-18] MEDS: INFLUENZA VIRUS VACCINE TVS (6MO+) 2024-25/PF 45 MCG/0.5 ML SYRINGE IM. ONE (16:56)
[2024-02-18 20:45] VITALS: BP 130/76; PULSE 85; RESP 18; TEMP 97.8; O2SAT 98
[2024-02-19 08:10] VITALS: BP 121/62; PULSE 98; RESP 18; TEMP 97.9; O2SAT 100
[2024-02-19 20:10] VITALS: BP 126/77; PULSE 76; RESP 18; TEMP 97.5; O2SAT 99
[2024-02-20 08:56] VITALS: BP 125/68; PULSE 106; RESP 19; TEMP 97.2; O2SAT 99
[2024-02-20] MEDS ORDERED: LURA60TA PO (12:31)
[2024-02-20] MEDS ORDERED: BENZ2TAB84 PO (12:31)
[2024-02-20] MEDS ORDERED: RISP3TAB77 PO (12:31)
[2024-02-20] MEDS ORDERED: DIVA-112 PO (12:31)
== END 2024-02-20 16:30 | disposition home or self-care (01) | DRG 750 ==
LOC: EMS 09:49 → B3A 02-02 02:50 → B2S 02-18 09:24
PROVIDERS: ADMIT Psychiatry & Neurology Child & Adolescent Psychiatry; ATTEND Psychiatry & Neurology Child & Adolescent Psychiatry
PROC: GZHZZZZ Group Psychotherapy (ICD-10-PCS; principal; 2024-02-03)
PROC: GZ52ZZZ Individual Psychotherapy, Cognitive (ICD-10-PCS; 2024-02-03)
PROC: GZ56ZZZ Individual Psychotherapy, Supportive (ICD-10-PCS; 2024-02-03)
DX: F25.0 Schizoaffective disorder, bipolar type (principal); Z91.148 Patient's other noncompliance with medication regimen for other reason; D72.829 Elevated white blood cell count, unspecified; E66.9 Obesity, unspecified; Z20.822 Contact with and (suspected) exposure to COVID-19; I10 Essential (primary) hypertension; K21.9 Gastro-esophageal reflux disease without esophagitis; Z68.33 Body mass index [BMI] 33.0-33.9, adult; S90.829A Blister (nonthermal), unspecified foot, initial encounter; Z78.1 Physical restraint status
CPT/HCPCS: 80048; 80061; 80164; 80307; 81003; 83036; 84443; 85025; 99285; G0480; J1200; J1630; J2060

== ENCOUNTER 2024-03-21 02:44 | Inpatient (IN) | payer MEDICAID ==
[~2024-03-21] VITALS: Ht 162.6 cm; Wt 92.5 kg
[~2024-03-21 02:44] MED LIST changes: +DIVA-112 PO; +LURA60TA PO; -RISPC50 IM
[2024-03-21] MEDS ORDERED: ZOLPIDEM TARTRATE 10 MG TABLET PO PRN (03:15)
[2024-03-21] MEDS ORDERED: HALOPERIDOL 5 MG TABLET PO PRN (03:15)
[2024-03-21 03:51] LABS: GLUCOMETER DEV NAME(LOC) POC.BV; POC SARS-COV2 AG, FIA NEGATIVE (NEGATIVE)
[2024-03-21 05:11] VITALS: BP 158/98; PULSE 91; RESP 18; TEMP 97.4; O2SAT 99
[2024-03-21 08:07] VITALS: BP 116/60; PULSE 88; RESP 18; TEMP 97; O2SAT 98
[2024-03-21] MEDS: DIVALPROEX SODIUM 500 MG DR TABLET PO SCH (16:58)
[2024-03-21 20:00] VITALS: BP 121/73; PULSE 66; RESP 16; TEMP 97.4; O2SAT 97
[2024-03-21] MEDS: LURASIDONE HCL 60 MG TABLET PO SCH (21:06)
[2024-03-21] MEDS: BENZTROPINE MESYLATE 2 MG TABLET PO SCH (21:07)
[2024-03-22 08:00] VITALS: BP 117/74; PULSE 96; RESP 17; TEMP 97.4; O2SAT 99
[2024-03-22 08:43] LABS: BASOPHILS % (AUTO) 0.6 % (0.0-2.0); EOSINOPHILS % (AUTO) 3.3 % (1.0-6.0); HEMATOCRIT 40.8 % (41-53); HEMOGLOBIN 13.8 g/dL (13.5-17.5); LYMPHOCYTES # (AUTO) 2.8 K/uL (1.0-4.8); LYMPHOCYTES % (AUTO) 27.5 % (22.0-44.0); MEAN CORPUSCULAR HGB CONC 33.8 G/dL (31.0-37.0); MEAN CORPUSCULAR VOLUME 86 fL (80-100); MONOCYTES # (AUTO) 0.7 K/uL (0.1-1.0); MONOCYTES % (AUTO) 6.3 % (2.0-9.0); NEUTROPHILS # (AUTO) 6.4 K/uL (1.8-7.7); NEUTROPHILS % (AUTO) 62.3 % (40.0-70.0); PLATELET COUNT (AUTO) 367 K/uL (150-450); RED BLOOD CELL COUNT(AUTO) 4.76 MIL/uL (4.50-5.90); RED CELL DISTRIBUTION WIDTH 14.7 % (11.5-14.5); WHITE BLOOD COUNT (AUTO) 10.3 K/uL (4.5-11.0)
[2024-03-22 08:48] LABS: HEMOGLOBIN A1C 5.9 % (3.8-5.6)
[2024-03-22 09:03] LABS: ALANINE AMINOTRANSFERASE 31 U/L (12-78); ALBUMIN 3.3 g/dL (3.4-5.0); ALKALINE PHOSPHATASE 79 U/L (46-116); ANION GAP 11 mmol/L (8-16); ASPARTATE AMINOTRANSFERASE 19 U/L (15-37); BILIRUBIN,TOTAL 0.4 mg/dL (0.1-1.0); CALCIUM, TOTAL 8.8 mg/dL (8.8-10.5); CARBON DIOXIDE 27 mmol/L (22-29); CHLORIDE 103 mmol/L (98-107); CHOL/HDL RATIO 4.4 (4.2-7.3); CHOLESTEROL 216 mg/dL (131-200); CREATININE 0.82 mg/dL (0.60-1.30); FREE T4 (FREE THYROXINE) 1.37 ng/dL (0.76-1.46); GLOMERULAR FILTR. RATE CALC > 60 mL/min (>60); GLUCOSE,RANDOM 90 mg/dL (70-110); HDL CHOLESTEROL 49 mg/dL (40-60); LDL CHOL (CALC.) 141 mg/dL (0-130); SODIUM SERUM 141 mmol/L (136-145); THYROID STIMULATING HORMONE 1.56 uIU/mL (0.36-3.74); TOTAL PROTEIN, SERUM 7.7 g/dL (6.4-8.2); TRIGLYCERIDES 128 mg/dL (15-150); UREA NITROGEN, BLOOD 9 mg/dL (7-18)
[2024-03-22] MEDS ORDERED: MAGNESIUM HYDROXIDE SUSPENSION 30 ML UDCUP PO PRN (17:15)
[2024-03-22] MEDS ORDERED: ALBUTEROL SULFATE HFA 90 MCG/PUFF 8 GM INHALER IH PRN (17:15)
[2024-03-22] MEDS ORDERED: GuaiFENesin/D-METHORPHAN [SUGAR-FREE] 200-20MG/10 ML SYRUP UDCUP PO PRN (17:15)
[2024-03-22] MEDS ORDERED: LOPERAMIDE HCL 2 MG CAPSULE PO PRN (17:15)
[2024-03-22] MEDS ORDERED: ONDANSETRON 4 MG TABLET PO PRN (17:15)
[2024-03-22] MEDS ORDERED: CloNIDine HCL 0.1 MG TABLET PO PRN (17:15)
[2024-03-22] MEDS ORDERED: DOCUSATE SODIUM 100 MG CAPSULE PO PRN (17:15)
[2024-03-22] MEDS ORDERED: NICOTINE 14 MG/24 HOUR PATCH TD PRN (17:15)
[2024-03-22] MEDS ORDERED: PETROLATUM,WHITE 28 GM JELLY TP PRN (17:15)
[2024-03-22] MEDS: MAG HYDROX/ALUMINUM HYD/SIMETH ES 30 ML SUSPENSION UDCUP PO PRN (21:01)
[2024-03-23] MEDS: IBUPROFEN 400 MG TABLET PO PRN (02:58)
[2024-03-23 03:01] VITALS: BP 125/80; PULSE 71; RESP 18; TEMP 97.2; O2SAT 98
[2024-03-23 08:45] VITALS: BP 120/77; PULSE 88; RESP 17; TEMP 97.8; O2SAT 98
[2024-03-23 09:52] LABS: BASOPHILS % (AUTO) 0.5 % (0.0-2.0); EOSINOPHILS % (AUTO) 1.8 % (1.0-6.0); HEMOGLOBIN 14.2 g/dL (13.5-17.5); LYMPHOCYTES % (AUTO) 24.3 % (22.0-44.0); MEAN CORPUSCULAR HEMOGLOBIN 28.4 pg (26.0-34.0); MEAN CORPUSCULAR HGB CONC 33.1 G/dL (31.0-37.0); MEAN CORPUSCULAR VOLUME 86 fL (80-100); MONOCYTES # (AUTO) 0.6 K/uL (0.1-1.0); MONOCYTES % (AUTO) 4.8 % (2.0-9.0); NEUTROPHILS # (AUTO) 8.6 K/uL (1.8-7.7); NEUTROPHILS % (AUTO) 68.6 % (40.0-70.0); PLATELET COUNT (AUTO) 405 K/uL (150-450); RED BLOOD CELL COUNT(AUTO) 5.01 MIL/uL (4.50-5.90); RED CELL DISTRIBUTION WIDTH 14.8 % (11.5-14.5); WHITE BLOOD COUNT (AUTO) 12.5 K/uL (4.5-11.0)
[2024-03-23 10:08] LABS: HEMOGLOBIN A1C 5.8 % (3.8-5.6)
[2024-03-23 13:06] LABS: ANION GAP 8 mmol/L (8-16); CARBON DIOXIDE 31 mmol/L (22-29); CHLORIDE 100 mmol/L (98-107); GLUCOSE,RANDOM 108 mg/dL (70-110); POTASSIUM 4.3 mmol/L (3.5-5.1); SODIUM SERUM 139 mmol/L (136-145); UREA NITROGEN, BLOOD 13 mg/dL (7-18)
[2024-03-23 13:07] LABS: ALANINE AMINOTRANSFERASE 29 U/L (12-78); ALBUMIN 3.5 g/dL (3.4-5.0); ALKALINE PHOSPHATASE 84 U/L (46-116); ASPARTATE AMINOTRANSFERASE 16 U/L (15-37); BILIRUBIN,TOTAL 0.4 mg/dL (0.1-1.0); CALCIUM, TOTAL 8.7 mg/dL (8.8-10.5); CHOL/HDL RATIO 4.4 (4.2-7.3); CHOLESTEROL 209 mg/dL (131-200); CREATININE 0.88 mg/dL (0.60-1.30); GLOMERULAR FILTR. RATE CALC > 60 mL/min (>60); HDL CHOLESTEROL 48 mg/dL (40-60); LDL CHOL (CALC.) 127 mg/dL (0-130); THYROID STIMULATING HORMONE 1.37 uIU/mL (0.36-3.74); TOTAL PROTEIN, SERUM 7.5 g/dL (6.4-8.2); TRIGLYCERIDES 171 mg/dL (15-150)
[2024-03-23 20:18] VITALS: BP 121/78; PULSE 87; RESP 17; TEMP 97.8; O2SAT 98
[2024-03-23 21:10] VITALS: RESP 18
[2024-03-23 22:13] VITALS: RESP 18
[2024-03-24 08:26] VITALS: BP 112/70; PULSE 80; RESP 16; TEMP 97.5; O2SAT 99
[2024-03-24 08:33] LABS: APPEARANCE,URINE TURBID (CLEAR); BILIRUBIN,URINE NEGATIVE (NEGATIVE); COLOR,URINE LIGHT ORANGE (YELLOW); GLUCOSE, URINE (UA) NEGATIVE (NEGATIVE); KETONES,URINE TRACE mg/dL (NEGATIVE); LEUKOCYTE ESTERASE ,URINE NEGATIVE (NEGATIVE); NITRATE,URINE NEGATIVE (NEGATIVE); OCCULT BLOOD,URINE NEGATIVE (NEGATIVE); PROTEIN,URINE TRACE mg/dL (NEGATIVE); SPECIFIC GRAVITIY, URINE 1.031 (1.003-1.030); UROBILINOGEN,URINE <=1.0 mg/dL (<=1.0)
[2024-03-24] MEDS: BACITRACIN 28 GM OINTMENT TP SCH (08:34)
[2024-03-24 08:41] LABS: AMPHET/METH SCREEN,URINE NEGATIVE (NEGATIVE); BARBITURATE SCREEN, URINE NEGATIVE (NEGATIVE); BENZODIAZEPINES SCREEN,URINE NEGATIVE (NEGATIVE); CANNABINOID SCREEN,URINE NEGATIVE (NEGATIVE); COCAINE SCREEN,URINE NEGATIVE (NEGATIVE); METHADONE SCREEN, URINE NEGATIVE (NEGATIVE); OPIATE SCREEN,URINE NEGATIVE (NEGATIVE); PHENCYCLIDINE SCREEN,URINE NEGATIVE (NEGATIVE)
[2024-03-24 08:44] LABS: ALCOHOL, URINE DRUG SCREEN NEGATIVE (NEGATIVE)
[2024-03-24 20:18] VITALS: BP 115/69; PULSE 85; RESP 17; TEMP 97.5; O2SAT 98
[2024-03-25 08:37] VITALS: BP 118/73; PULSE 79; RESP 17; TEMP 97.3; O2SAT 98
[2024-03-25 20:51] VITALS: BP 120/78; PULSE 61; RESP 18; TEMP 97.6; O2SAT 97
[2024-03-26 08:43] VITALS: BP 120/74; PULSE 95; RESP 19; TEMP 97.7; O2SAT 100
[2024-03-26 20:01] VITALS: BP 109/72; PULSE 77; RESP 18; TEMP 97.6; O2SAT 98
[2024-03-27 08:34] VITALS: BP 124/83; PULSE 84; RESP 18; TEMP 97.5; O2SAT 99
[2024-03-27 20:48] VITALS: BP 124/75; PULSE 77; RESP 18; TEMP 97.3; O2SAT 100
[2024-03-27 22:02] VITALS: BP 115/73; PULSE 71; RESP 18; TEMP 96.6; O2SAT 99
[2024-03-27] MEDS: ACETAMINOPHEN 325 MG TABLET PO PRN (22:02)
[2024-03-27 23:02] VITALS: RESP 17; O2SAT 98
[2024-03-28 08:46] VITALS: BP 120/64; PULSE 65; RESP 18; TEMP 97.5; O2SAT 95
[2024-03-28 20:20] VITALS: BP 116/68; PULSE 68; RESP 18; TEMP 97.4; O2SAT 97
[2024-03-28 20:29] VITALS: BP 135/81; PULSE 73; RESP 16; TEMP 98.3; O2SAT 97
[2024-03-28 21:20] VITALS: RESP 16; TEMP 98.2
[2024-03-29 08:30] VITALS: BP 116/87; PULSE 70; RESP 19; TEMP 98; O2SAT 95
[2024-03-29 20:00] VITALS: BP 110/69; PULSE 77; RESP 18; TEMP 97.8; O2SAT 99
[2024-03-29 21:15] VITALS: RESP 18
[2024-03-29 22:15] VITALS: RESP 18
[2024-03-29 23:11] VITALS: RESP 18
[2024-03-30 08:51] VITALS: BP 102/71; PULSE 85; RESP 18; TEMP 97.3; O2SAT 99
[2024-03-30 20:21] VITALS: BP 120/82; PULSE 75; RESP 18; TEMP 97.2; O2SAT 99
[2024-03-31 08:42] VITALS: BP 119/75; PULSE 76; RESP 18; TEMP 97.7; O2SAT 100
[2024-03-31 20:23] VITALS: BP 125/74; PULSE 83; RESP 18; TEMP 96.5; O2SAT 99
[2024-03-31] MEDS: INFLUENZA VIRUS VACCINE TVS (6MO+) 2024-25/PF 45 MCG/0.5 ML SYRINGE IM. ONE (21:58)
[2024-04-01 08:22] VITALS: BP 119/74; PULSE 86; RESP 18; TEMP 97.7; O2SAT 98
[2024-04-01] MEDS: RisperiDONE MICROSPHERES 50 MG/2 ML SYRINGE IM ONE (16:17)
[2024-04-01 20:03] VITALS: BP 123/75; PULSE 89; RESP 17; TEMP 97.6
[2024-04-01] MEDS: LURASIDONE HCL 80 MG TABLET PO SCH (20:05)
[2024-04-02 08:59] VITALS: BP 121/81; PULSE 75; RESP 18; TEMP 96.5; O2SAT 96
[2024-04-02 20:21] VITALS: BP 116/71; PULSE 81; RESP 16; TEMP 97.5; O2SAT 97
[2024-04-03 09:17] VITALS: BP 114/74; PULSE 89; RESP 18; TEMP 98; O2SAT 98
[2024-04-03 21:30] VITALS: BP 117/78; PULSE 89; RESP 18; TEMP 97.9; O2SAT 99
[2024-04-04 08:30] VITALS: BP 119/76; PULSE 77; RESP 16; TEMP 97.6; O2SAT 96
[2024-04-04 20:38] VITALS: BP 117/78; PULSE 79; RESP 18; TEMP 97.4; O2SAT 98
[2024-04-04 21:58] VITALS: BP 135/83; PULSE 76; RESP 18; O2SAT 96
[2024-04-04] MEDS: LORazepam 2 MG TABLET PO PRN (22:01)
[2024-04-05 08:15] VITALS: BP 110/65; PULSE 78; RESP 16; TEMP 96.9; O2SAT 98
[2024-04-05 20:16] VITALS: BP 106/74; PULSE 97; RESP 17; TEMP 97.2; O2SAT 96
[2024-04-06 09:36] VITALS: BP 111/76; PULSE 102; RESP 17; TEMP 96.8; O2SAT 96
[2024-04-06 20:57] VITALS: BP 116/78; PULSE 89; RESP 18; TEMP 96.4; O2SAT 98
[2024-04-07 08:43] VITALS: BP 123/80; PULSE 90; RESP 18; TEMP 98; O2SAT 98
[2024-04-07 20:19] VITALS: BP 140/92; PULSE 97; RESP 17; TEMP 97.6; O2SAT 98
[2024-04-08 08:40] VITALS: BP 133/90; PULSE 68; RESP 18; TEMP 97.4; O2SAT 97
[2024-04-08 21:02] VITALS: BP 133/84; PULSE 93; RESP 18; TEMP 97.9; O2SAT 97
[2024-04-09 09:26] VITALS: BP 125/73; PULSE 90; RESP 18; TEMP 97.6; O2SAT 99
[2024-04-09 20:00] VITALS: BP 125/80; PULSE 79; RESP 18; TEMP 96.6; O2SAT 98
[2024-04-10] MEDS ORDERED: LURA80TA2 PO (08:10)
[2024-04-10 08:37] VITALS: BP 110/77; PULSE 82; RESP 17; TEMP 97.7; O2SAT 99
[2024-04-15] MEDS ORDERED: RisperiDONE MICROSPHERES 50 MG/2 ML SYRINGE IM SCH (09:00)
== END 2024-04-10 10:34 | disposition home or self-care (01) | DRG 750 ==
LOC: B3A 03:12 → B2S 03-22 14:25
PROVIDERS: ADMIT Psychiatry & Neurology Child & Adolescent Psychiatry; ATTEND Psychiatry & Neurology Child & Adolescent Psychiatry
PROC: GZHZZZZ Group Psychotherapy (ICD-10-PCS; principal; 2024-03-28)
PROC: GZ52ZZZ Individual Psychotherapy, Cognitive (ICD-10-PCS; 2024-03-28)
PROC: GZ56ZZZ Individual Psychotherapy, Supportive (ICD-10-PCS; 2024-03-28)
DX: F25.0 Schizoaffective disorder, bipolar type (principal); R45.851 Suicidal ideations; E66.9 Obesity, unspecified; I10 Essential (primary) hypertension; K21.9 Gastro-esophageal reflux disease without esophagitis; Z68.35 Body mass index [BMI] 35.0-35.9, adult; Z20.822 Contact with and (suspected) exposure to COVID-19; Z79.899 Other long term (current) drug therapy; F41.9 Anxiety disorder, unspecified
CPT/HCPCS: 80053; 80061; 80164; 80307; 81003; 83036; 84439; 84443; 85025; 87081; J2794